=== PATIENT | female | born 1940 | race Caucasian/White ===

== ENCOUNTER → 2019-03-24 | Outpatient (CLI) | payer MEDICARE, OTHER ==
[2019-03-24 16:45] LABS: BASOPHILS # (AUTO) 0.1 10^3/uL (0.0-0.1); BASOPHILS % (AUTO) 1 % (0-10); EOSINOPHILS # (AUTO) 0.1 10^3/uL (0.0-0.3); EOSINOPHILS % (AUTO) 1 % (0-10); HEMATOCRIT 40 % (35-52); HEMOGLOBIN 13.2 G/DL (11.5-16.0); LYMPHOCYTES # (AUTO) 1.8 X 10^3 (1.0-4.0); LYMPHOCYTES % (AUTO) 29 % (12-44); MEAN CORPUSCULAR HEMOGLOBIN 28 PG (25-34); MEAN CORPUSCULAR HGB CONC 33 G/DL (32-36); MEAN CORPUSCULAR VOLUME 86 FL (80-99); MEAN PLATELET VOLUME 8.9 FL (7.4-10.4); MONOCYTES # (AUTO) 0.6 X 10^3 (0.0-1.0); MONOCYTES % (AUTO) 9 % (0-12); NEUTROPHILS # (AUTO) 3.8 X 10^3 (1.8-7.8); NEUTROPHILS % (AUTO) 60 % (42-75); PLATELET COUNT 309 10^3/uL (130-400); WHITE BLOOD COUNT 6.4 10^3/uL (4.3-11.0)
--- NOTE | 2019-03-24 16:55 | Diagnostic Imaging Report ---
INDICATION: Heart murmur. COMPARISON: None available. TECHNIQUE: Frontal and lateral radiograph of the chest dated March 24, 2019. FINDINGS: The cardiac silhouette is within normal limits in size. No significant pulmonary vascular congestion. The lungs are clear of focal pulmonary opacity. No pleural effusion. No pneumothorax. Mild S-shaped curvature of the thoracolumbar spine with mild scattered osseous degenerative changes. No acute osseous abnormality. IMPRESSION: No acute cardiopulmonary abnormality. Dictated by: Dictated on workstation # [id number]
[2019-03-24 17:10] LABS: ALANINE AMINOTRANSFERASE 18 U/L (0-55); ALBUMIN 4.3 GM/DL (3.2-4.5); ALKALINE PHOSPHATASE 67 U/L (40-136); BILIRUBIN,TOTAL 0.5 MG/DL (0.1-1.0); BUN/CREATININE RATIO 20; CALCIUM 9.5 MG/DL (8.5-10.1); CARBON DIOXIDE 24 MMOL/L (21-32); CHLORIDE 107 MMOL/L (98-107); CREATININE SERUM 0.92 MG/DL (0.60-1.30); GFR ESTIMATED 59; GLUCOSE 95 MG/DL (70-105); POTASSIUM 4.2 MMOL/L (3.6-5.0); SODIUM 141 MMOL/L (135-145); TOTAL PROTEIN 7.3 GM/DL (6.4-8.2)
[2019-03-24 17:12] LABS: ERYTHROCYTE SEDIMENTATION RATE 12 MM/HR (0-30)
[2019-03-24 17:30] LABS: FREE T4 (FREE THYROXINE) 1.01 NG/DL (0.70-1.48)
== END ==
LOC: CARD 16:24
PROVIDERS: ATTEND Family Medicine
DX: R06.00 Dyspnea, unspecified (principal); R53.83 Other fatigue; R05 Cough; R01.1 Cardiac murmur, unspecified
CPT/HCPCS: 36415; 71046; 80053; 84439; 84443; 84484; 85025; 85652; 93005

== ENCOUNTER → 2020-03-11 | Outpatient (CLI) | payer MEDICARE, OTHER ==
--- NOTE | 2020-03-11 14:59 | Diagnostic Imaging Report ---
EXAMINATION: CT head without contrast. TECHNIQUE: Multiple contiguous axial images were obtained through the brain without the use of intravenous contrast. All CT scans use one or more of the following dose optimizing techniques: automated exposure control, MA and/or KvP adjustment based on a patient size and exam type, or iterative reconstruction. HISTORY: Hypertension. Vision changes. Headache. COMPARISON: None available. FINDINGS: No large acute territorial ischemia, mass, or hemorrhage. No midline shift or mass effect. Small amount of scattered hypoattenuation is seen in the periventricular and subcortical white matter. The ventricles, cortical sulci, and basilar cisterns are patent and unremarkable. The orbits are normal. Paranasal sinuses are normal. Mastoid air cells are clear. No soft tissue abnormality is seen. No osseous lesions or fractures are seen. IMPRESSION: 1. No large acute territorial ischemia, mass, or hemorrhage. 2. Scattered areas of hypoattenuation in the periventricular and subcortical white matter, favored to represent chronic microvascular disease. Dictated by: Dictated on workstation # [id number]
== END ==
LOC: RAD 14:34
PROVIDERS: ATTEND Family Medicine
DX: I10 Essential (primary) hypertension (principal); H53.9 Unspecified visual disturbance; G93.89 Other specified disorders of brain
CPT/HCPCS: 70450

== ENCOUNTER → 2020-03-22 | Outpatient (CLI) | payer MEDICARE, OTHER ==
--- NOTE | 2020-03-22 12:55 | Diagnostic Imaging Report ---
PROCEDURE: US carotid duplex, bilateral. TECHNIQUE: Multiple real-time grayscale images were obtained over the carotid arteries in various projections, bilaterally. Additional spectral analysis and color Doppler duplex images were also obtained. INDICATION: Carotid bruit. FINDINGS: Mild plaquing is identified bilaterally. There is very mild velocity elevation in the right internal carotid artery reaching 137 cm/s. Velocities on the left carotid system are unremarkable. Both vertebral arteries show antegrade flow. IMPRESSION: Mild bilateral carotid plaque. Velocity measurements in the right internal carotid artery are consistent with approximately 50% diameter stenosis. No other significant abnormality is seen. Parameters based on the consensus panel Mckeon-Scale and Doppler ultrasound criteria published April 2003, Radiology, Volume 229. DOPPLER (peak systolic velocity M/S Right Left CCA 1.0 1.3 ICA Proximal 1.37 1.06 ICA Mid 1.32 1.0 ICA Distal 0.81 0.96 RATIO 1.38 0.82 ECA 1.19 1.33 VERT 0.70 0.65 Dictated by: Dictated on workstation # [id number]
== END ==
LOC: RAD 12:30
PROVIDERS: ATTEND Family Medicine
DX: I65.23 Occlusion and stenosis of bilateral carotid arteries (principal); R09.89 Other specified symptoms and signs involving the circulatory and respiratory systems
CPT/HCPCS: 93880

== ENCOUNTER → 2020-03-27 | Outpatient (CLI) | payer MEDICARE, OTHER | LOC: LAB 11:14 | PROVIDERS: ATTEND Internal Medicine | DX: M31.6 Other giant cell arteritis (principal) | CPT/HCPCS: 36415; 85652; 86141 ==

== ENCOUNTER 2020-04-08 12:00 | Emergency (ER) | payer MEDICARE, OTHER ==
[~2020-04-08] VITALS: Ht 160 cm; Wt 56.7 kg
--- NOTE | 2020-04-08 12:17 | ED General ---
General Stated Complaint: [place],HTN, BLURRED VISION, WEAKNESS Source of Information: Patient Exam Limitations: No Limitations History of Present Illness Date Seen by Provider: Apr 08, 2020 Time Seen by Provider: 12:14 Initial Comments To ER by private vehicle with reports of a brief episode of headache and general malaise and high blood pressure. She awakened this morning feeling fine, went to a , had a brief episode of headache, blurred vision and high blood pressure as well as global weakness. She states that she feels back to normal now as if she could go home and eat something. 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 Timing/Duration: 1/2 Hour Severity: Moderate Associated Systoms: Headaches Allergies and Home Medications Allergies Coded Allergies: acetaminophen (Unverified Allergy, Unknown, 09/08/14) Home Medications No Active Prescriptions or Reported Meds Patient Home Medication List Home Medication List Reviewed: Yes Review of Systems Review of Systems Constitutional: see HPI EENTM: see HPI Respiratory: no symptoms reported Cardiovascular: no symptoms reported Genitourinary: no symptoms reported Musculoskeletal: no symptoms reported Skin: no symptoms reported Psychiatric/Neurological: No Symptoms Reported Hematologic/Lymphatic: No Symptoms Reported Past Irbtkdq-Swxwaj-Rbqdlj Hx Patient Social History Recent Foreign Travel: No Contact w/Someone Who Travel: No Physical Exam Vital Signs Vital Signs - First Documented 04/08/20 12:35 Temp 35.7 Pulse 70 Resp 20 B/P (MAP) 199/104 (135) Pulse Ox 96 O2 Delivery Room Air Capillary Refill : Height, Weight, BMI Height: 5'4.00" Weight: 144lbs. oz. 65.666597bi; BMI Method: General Appearance: No Apparent Distress, WD/WN, Other (alert and oriented, walks to room 6 without antalgic gat. Recalls all events of today and describes them in great detail. She does appear quite anxious. She is hypertensive at 1 99/104 with a heart rate normal sinus rhythm 73 without ectopy.) Eyes: Bilateral Eye Normal Inspection, Bilateral Eye PERRL Respiratory: Normal Breath Sounds, No Accessory Muscle Use, No Respiratory Distress Gastrointestinal: Normal Bowel Sounds, Non Tender, Soft Neurologic/Psychiatric: Alert, Oriented x3, Other (she moves all extremities without motor or sensory deficit.) Skin: Normal Color, Warm/Dry Progress/Results/Core Measures Suspected Sepsis SIRS Temperature: Pulse: Respiratory Rate: Laboratory Tests 04/08/20 12:22: White Blood Count 15.6H Blood Pressure / Mean: Laboratory Tests 04/08/20 12:22: Creatinine 0.86, Platelet Count 525H, Total Bilirubin 0.8 Results/Orders Lab Results Laboratory Tests Test 04/08/20 12:22 Range/Units White Blood Count 15.6 H 4.3-11.0 10^3/uL Red Blood Count 4.78 3.80-5.11 10^6/uL Hemoglobin 12.4 11.5-16.0 g/dL Hematocrit 40 35-52 % Mean Corpuscular Volume 84 80-99 fL Mean Corpuscular Hemoglobin 26 25-34 pg Mean Corpuscular Hemoglobin Concent 31 L 32-36 g/dL Red Cell Distribution Width 15.7 H 10.0-14.5 % Platelet Count 525 H 130-400 10^3/uL Mean Platelet Volume 8.5 L 9.0-12.2 fL Immature Granulocyte % (Auto) 1 % Neutrophils (%) (Auto) 70 42-75 % Lymphocytes (%) (Auto) 21 12-44 % Monocytes (%) (Auto) 7 0-12 % Eosinophils (%) (Auto) 0 0-10 % Basophils (%) (Auto) 0 0-10 % Neutrophils # (Auto) 11.0 H 1.8-7.8 10^3/uL Lymphocytes # (Auto) 3.3 1.0-4.0 10^3/uL Monocytes # (Auto) 1.1 H 0.0-1.0 10^3/uL Eosinophils # (Auto) 0.1 0.0-0.3 10^3/uL Basophils # (Auto) 0.0 0.0-0.1 10^3/uL Immature Granulocyte # (Auto) 0.1 0.0-0.1 10^3/uL Neutrophils % (Manual) 67 % Lymphocytes % (Manual) 25 % Monocytes % (Manual) 8 % Hypochromasia SLIGHT Anisocytosis SLIGHT Erythrocyte Sedimentation Rate 15 0-30 MM/HR Urine Color YELLOW Urine Clarity CLOUDY Urine pH 7.5 5-9 Urine Specific [place] 1.020 1.016-1.022 Urine Protein 1+ H NEGATIVE Urine Glucose (UA) NEGATIVE NEGATIVE Urine Ketones NEGATIVE NEGATIVE Urine Nitrite NEGATIVE NEGATIVE Urine Bilirubin NEGATIVE NEGATIVE Urine Urobilinogen 0.2 < = 1.0 MG/DL Urine Leukocyte Esterase 1+ H NEGATIVE Urine RBC (Auto) NEGATIVE NEGATIVE Urine RBC RARE /HPF Urine WBC RARE /HPF Urine Crystals PRESENT H /LPF Urine Amorphous Sediment LARGE KARINE PHOSPHATE H /LPF Urine Bacteria NEGATIVE /HPF Urine Casts NONE /LPF Urine Mucus NEGATIVE /LPF Urine Culture Indicated NO Sodium Level 133 L 135-145 MMOL/L Potassium Level 3.8 3.6-5.0 MMOL/L Chloride Level 96 L 98-107 MMOL/L Carbon Dioxide Level 24 21-32 MMOL/L Anion Gap 13 5-14 MMOL/L Blood Urea Nitrogen 15 7-18 MG/DL Creatinine 0.86 0.60-1.30 MG/DL Estimat Glomerular Filtration Rate > 60 BUN/Creatinine Ratio 17 Glucose Level 116 H 70-105 MG/DL Calcium Level 9.2 8.5-10.1 MG/DL Corrected Calcium 9.1 8.5-10.1 MG/DL Total Bilirubin 0.8 0.1-1.0 MG/DL Aspartate Amino Transf (AST/SGOT) 16 5-34 U/L Alanine Aminotransferase (ALT/SGPT) 20 0-55 U/L Alkaline Phosphatase 66 40-136 U/L Troponin I < 0.028 <0.028 NG/ML Total Protein 7.2 6.4-8.2 GM/DL Albumin 4.1 3.2-4.5 GM/DL My Orders Orders - DA TOVAR APRN Ct Head Wo (04/08/20 12:11) Cbc With Automated Diff (04/08/20 12:11) Comprehensive Metabolic Panel (04/08/20 12:11) Erythrocyte Sedimentation Rate (04/08/20 12:11) Ekg Tracing (04/08/20 12:11) Troponin I (04/08/20 12:11) Ed Iv/Invasive Line Start (04/08/20 12:11) Ua Culture If Indicated (04/08/20 12:11) Manual Differential (04/08/20 12:22) Clonidine Tablet (Catapres Tablet) (04/08/20 13:15) Vital Signs/I&O 04/08/20 12:35 Temp 35.7 Pulse 70 Resp 20 B/P (MAP) 199/104 (135) Pulse Ox 96 O2 Delivery Room Air Capillary Refill : Departure Communication (Admissions) 1343-blood pressure has reduced down to 157/81 despite no treatment. She has calm down as well, feel that anxiety is at least a part of her symptoms. We'll have her follow-up with primary care for further blood pressure management. Impression Primary Impression: Hypertension Additional Impression: transient global weakness Disposition: HOME, SELF-CARE Condition: Stable Departure-Patient Inst. Decision time for Depature: 13:44 Referrals: AGUSTINA HAMM DO (PCP/Family) Primary Care Physician Patient Instructions: Medicines for High Blood Pressure Add. Discharge Instructions: 1. Follow-up with Dr. HAMM this week for recheck. Return to ER for any worsening or recurrent symptoms. Scripts No Active Prescriptions or Reported Meds Copy Copies To 1: AGUSTINA HAMM PETER J APRN Apr 08, 2020 12:17
[2020-04-08 12:33] LABS: BASOPHILS % (AUTO) 0 % (0-10); EOSINOPHILS # (AUTO) 0.1 10^3/uL (0.0-0.3); EOSINOPHILS % (AUTO) 0 % (0-10); HEMATOCRIT 40 % (35-52); HEMOGLOBIN 12.4 g/dL (11.5-16.0); LYMPHOCYTES # (AUTO) 3.3 10^3/uL (1.0-4.0); LYMPHOCYTES % (AUTO) 21 % (12-44); MEAN CORPUSCULAR HEMOGLOBIN 26 pg (25-34); MEAN CORPUSCULAR HGB CONC 31 g/dL (32-36); MEAN CORPUSCULAR VOLUME 84 fL (80-99); MEAN PLATELET VOLUME 8.5 fL (9.0-12.2); MONOCYTES # (AUTO) 1.1 10^3/uL (0.0-1.0); MONOCYTES % (AUTO) 7 % (0-12); NEUTROPHILS % (AUTO) 70 % (42-75); PLATELET COUNT 525 10^3/uL (130-400); WHITE BLOOD COUNT 15.6 10^3/uL (4.3-11.0)
[2020-04-08 12:34] LABS: BILIRUBIN,URINE NEGATIVE (NEGATIVE); CLARITY,URINE CLOUDY; COLOR,URINE YELLOW; GLUCOSE, URINE (UA) NEGATIVE (NEGATIVE); KETONES,URINE NEGATIVE (NEGATIVE); LEUKOCYTE ESTERASE ,URINE 1+ (NEGATIVE); NITRITE,URINE NEGATIVE (NEGATIVE); PH,URINE 7.5 (5-9); PROTEIN,URINE 1+ (NEGATIVE)
[2020-04-08 12:45] LABS: ALBUMIN 4.1 GM/DL (3.2-4.5); CHLORIDE 96 MMOL/L (98-107); POTASSIUM 3.8 MMOL/L (3.6-5.0); SODIUM 133 MMOL/L (135-145)
[2020-04-08 12:46] LABS: CALCIUM 9.2 MG/DL (8.5-10.1)
[2020-04-08 12:47] LABS: GLUCOSE 116 MG/DL (70-105); TOTAL PROTEIN 7.2 GM/DL (6.4-8.2)
[2020-04-08 12:49] LABS: BILIRUBIN,TOTAL 0.8 MG/DL (0.1-1.0); CARBON DIOXIDE 24 MMOL/L (21-32)
[2020-04-08 12:50] LABS: AMORPHOUS SEDIMENT,UR LARGE AMOR PHOSPHATE /LPF; BACTERIA,URINE NEGATIVE /HPF; RBC,URINE RARE /HPF; WBC,URINE RARE /HPF
[2020-04-08 12:51] LABS: ALKALINE PHOSPHATASE 66 U/L (40-136); CREATININE SERUM 0.86 MG/DL (0.60-1.30); GFR ESTIMATED > 60
[2020-04-08 12:52] LABS: BUN/CREATININE RATIO 17
[2020-04-08 12:54] LABS: ALANINE AMINOTRANSFERASE 20 U/L (0-55)
[2020-04-08 12:55] LABS: ANISOCYTOSIS SLIGHT; HYPOCHROMASIA SLIGHT; LYMPHOCYTES % (MANUAL) 25 %; MONOCYTES % (MANUAL) 8 %; NEUTROPHILS % (MANUAL) 67 %
[2020-04-08 12:56] LABS: ERYTHROCYTE SEDIMENTATION RATE 15 MM/HR (0-30)
[2020-04-08] MEDS ORDERED: cloNIDine 0.1 MG (CATAPRES) TAB PO ONE (13:15)
--- NOTE | 2020-04-08 13:46 | Diagnostic Imaging Report ---
PROCEDURE: CT head without contrast. TECHNIQUE: Multiple contiguous axial images were obtained through the brain without the use of intravenous contrast. Auto Exposure Controls were utilized during the CT exam to meet ALARA standards for radiation dose reduction. INDICATION: Dizziness There is no mass, shift of the midline or hemorrhage to suggest an acute intracranial abnormality. The ventricles are not abnormally dilated and stable in size when compared to the prior exam of 03/11/2020. The bone windows show no evidence for fracture or for destructive lesion. The orbits are symmetrical and within normal limits. The sinuses, where visualized, are clear. IMPRESSION: 1. There is no evidence for an acute intracranial abnormality. When compared to prior study there has been no significant change. 2. If clinical concern regarding an underlying abnormality persists, then MRI would be recommended for further study. 3. These results were discussed with Myles Terry APRN. Dictated by: Dictated on workstation # [id number]
[2020-04-08 13:54] VITALS: BP 162/59
== END 2020-04-08 13:54 | disposition home or self-care (01) ==
LOC: EDUNIT# 12:00 → ER 12:02
DX: I10 Essential (primary) hypertension (principal); R53.1 Weakness; F41.9 Anxiety disorder, unspecified; Z88.6 Allergy status to analgesic agent
CPT/HCPCS: 36415; 70450; 80053; 81000; 84484; 85007; 85027; 85652; 93005

== ENCOUNTER → 2020-04-14 | Outpatient (CLI) | payer MEDICARE ==
--- NOTE | 2020-04-14 10:30 | Diagnostic Imaging Report ---
PROCEDURE: MR imaging of the brain without contrast. TECHNIQUE: Multiplanar, multisequence MR imaging of the brain was performed without contrast. INDICATION: Headaches and weakness. No prior studies are available for comparison. FINDINGS: Ventricles and sulci are appropriate for the patient's age. There are occasional periventricular and subcortical white matter signal foci, likely on the basis of chronic microvascular ischemia. No diffusion restriction is identified to suggest acute ischemia. The normal expected flow-voids within the carotid siphons are noted. No acute intra-axial or extra-axial hemorrhage is detected. Corpus callosum is unremarkable. Sella and parasellar structures are unremarkable. IMPRESSION: Changes of chronic microvascular ischemia. No acute intracranial process is detected. Dictated by: Dictated on workstation # [id number]
== END ==
LOC: RAD 09:30
PROVIDERS: ATTEND Family Medicine
DX: R51.9 Headache, unspecified (principal); H53.9 Unspecified visual disturbance; R53.1 Weakness
CPT/HCPCS: 70551

== ENCOUNTER 2020-04-30 11:41 | Emergency (ER) | payer MEDICARE, OTHER ==
[~2020-04-30] VITALS: Ht 160 cm; Wt 56.8 kg
[2020-04-30] MEDS ORDERED: ASPIRIN 81 MG CHEW (CHILDREN'S ASA) PO ONE (12:00)
[2020-04-30 12:08] LABS: BASOPHILS # (AUTO) 0.1 10^3/uL (0.0-0.1); BASOPHILS % (AUTO) 1 % (0-10); EOSINOPHILS # (AUTO) 0.1 10^3/uL (0.0-0.3); EOSINOPHILS % (AUTO) 1 % (0-10); HEMATOCRIT 41 % (35-52); HEMOGLOBIN 12.7 g/dL (11.5-16.0); LYMPHOCYTES # (AUTO) 1.7 10^3/uL (1.0-4.0); LYMPHOCYTES % (AUTO) 16 % (12-44); MEAN CORPUSCULAR HEMOGLOBIN 27 pg (25-34); MEAN CORPUSCULAR HGB CONC 31 g/dL (32-36); MEAN CORPUSCULAR VOLUME 85 fL (80-99); MEAN PLATELET VOLUME 8.9 fL (9.0-12.2); MONOCYTES # (AUTO) 0.8 10^3/uL (0.0-1.0); MONOCYTES % (AUTO) 7 % (0-12); NEUTROPHILS # (AUTO) 8.3 10^3/uL (1.8-7.8); NEUTROPHILS % (AUTO) 75 % (42-75); PLATELET COUNT 391 10^3/uL (130-400)
--- NOTE | 2020-04-30 12:09 | NUR ---
UPDATE TO DAUGHTER SANJANA
--- NOTE | 2020-04-30 12:18 | ED Cardiac General ---
History of Present Illness General Chief Complaint: Chest Pain Stated Complaint: CP,BACK PAIN, Nursing Triage Note: AMB TO ROOM C/O CHEST PAIN AT HOME AROUND 10A STATES WAS TALKING WITH FRIEND AND THEY WAS DUSCUSSING COVID. WHEN ONSET OF PAIN ACROSS CHEST. ON PAIN ON ADMIT TO ROOM Source: patient Exam Limitations: no limitations History of Present Illness Date Seen by Provider: Apr 30, 2020 Time Seen by Provider: 12:16 Initial Comments To ER by private vehicle with reports of chest pain that was brief in duration and was across the left side of her chest into her back. She was also slightly short of breath. She was talking to her friend about Covid on the phone when she had this chest pain. It lasted about 15 minutes before completely resolving. She admits she was very anxious and upset in talking about Covid. Severity: moderate Activities at Onset: none NTG SL NUCLEAR POWERPLANT SUPERVISOR: No ASA po NUCLEAR POWERPLANT SUPERVISOR: No Allergies and Home Medications Allergies Coded Allergies: acetaminophen (Unverified Allergy, Unknown, 09/08/14) Home Medications Alprazolam 0.25 Mg Tablet, 0.25 MG PO BID PRN for ANXIETY Prescribed by: DA TOVAR on 04/30/20 1307 Patient Home Medication List Home Medication List Reviewed: Yes Review of Systems Review of Systems Constitutional: see HPI EENTM: No Symptoms Reported Respiratory: No Symptoms Reported Cardiovascular: See HPI, Chest Pain Gastrointestinal: See HPI Genitourinary: No Symptoms Reported Musculoskeletal: no symptoms reported Skin: no symptoms reported Psychiatric/Neurological: No Symptoms Reported Endocrine: No Symptoms Reported Hematologic/Lymphatic: No Symptoms Reported Past Wghnews-Amxkfk-Teadoh Hx Patient Social History Alcohol Use: Denies Use Recreational Drug Use: No Smoking Status: Never a Smoker Recent Foreign Travel: No Contact w/Someone Who Travel: No Recent Infectious Disease Expo: No Immunizations Up To Date Tetanus Booster (TDap): Unknown Past Medical History Surgeries: Yes Respiratory: No Cardiac: No Neurological: No Gastrointestinal: No Musculoskeletal: No Endocrine: No Physical Exam Vital Signs Vital Signs - First Documented 04/30/20 11:41 Temp 36.5 Pulse 89 Resp 18 B/P (MAP) 159/82 (107) Pulse Ox 99 O2 Delivery Room Air Capillary Refill : Less Than 3 Seconds Height, Weight, BMI Height: 5'4.00" Weight: 144lbs. oz. 65.922561se; 22.00 BMI Method: General Appearance: No Apparent Distress, WD/WN, Anxious (Very anxious, speaks in a high rate of speed. Denies any complaints of pain or shortness of breath at this time.) Neck: Full Range of Motion, Normal Inspection Respiratory: Lungs Clear, Normal Breath Sounds, No Accessory Muscle Use, No Respiratory Distress Cardiovascular: Regular Rate, Rhythm, Normal Peripheral Pulses Gastrointestinal: Normal Bowel Sounds, Non Tender, Soft Extremity: Normal Capillary Refill, Normal Inspection Neurologic/Psychiatric: Alert, Oriented x3 Skin: Normal Color, Warm/Dry Progress/Results/Core Measures Results/Orders Lab Results Laboratory Tests Test 04/30/20 11:49 04/30/20 14:05 Range/Units White Blood Count 11.0 4.3-11.0 10^3/uL Red Blood Count 4.79 3.80-5.11 10^6/uL Hemoglobin 12.7 11.5-16.0 g/dL Hematocrit 41 35-52 % Mean Corpuscular Volume 85 80-99 fL Mean Corpuscular Hemoglobin 27 25-34 pg Mean Corpuscular Hemoglobin Concent 31 L 32-36 g/dL Red Cell Distribution Width 18.2 H 10.0-14.5 % Platelet Count 391 130-400 10^3/uL Mean Platelet Volume 8.9 L 9.0-12.2 fL Immature Granulocyte % (Auto) 1 % Neutrophils (%) (Auto) 75 42-75 % Lymphocytes (%) (Auto) 16 12-44 % Monocytes (%) (Auto) 7 0-12 % Eosinophils (%) (Auto) 1 0-10 % Basophils (%) (Auto) 1 0-10 % Neutrophils # (Auto) 8.3 H 1.8-7.8 10^3/uL Lymphocytes # (Auto) 1.7 1.0-4.0 10^3/uL Monocytes # (Auto) 0.8 0.0-1.0 10^3/uL Eosinophils # (Auto) 0.1 0.0-0.3 10^3/uL Basophils # (Auto) 0.1 0.0-0.1 10^3/uL Immature Granulocyte # (Auto) 0.1 0.0-0.1 10^3/uL Prothrombin Time 13.3 12.2-14.7 SEC INR Comment 1.0 0.8-1.4 Activated Partial Thromboplast Time 28 24-35 SEC Sodium Level 135 135-145 MMOL/L Potassium Level 4.2 3.6-5.0 MMOL/L Chloride Level 98 98-107 MMOL/L Carbon Dioxide Level 25 21-32 MMOL/L Anion Gap 12 5-14 MMOL/L Blood Urea Nitrogen 16 7-18 MG/DL Creatinine 0.80 0.60-1.30 MG/DL Estimat Glomerular Filtration Rate > 60 BUN/Creatinine Ratio 20 Glucose Level 86 70-105 MG/DL Calcium Level 8.7 8.5-10.1 MG/DL Corrected Calcium 8.7 8.5-10.1 MG/DL Magnesium Level 2.2 1.6-2.4 MG/DL Total Bilirubin 0.6 0.1-1.0 MG/DL Aspartate Amino Transf (AST/SGOT) 20 5-34 U/L Alanine Aminotransferase (ALT/SGPT) 20 0-55 U/L Alkaline Phosphatase 61 40-136 U/L Myoglobin 33.1 10.0-92.0 NG/ML Troponin I < 0.028 < 0.028 <0.028 NG/ML B-Type Natriuretic Peptide 69.0 <100.0 PG/ML Total Protein 7.0 6.4-8.2 GM/DL Albumin 4.0 3.2-4.5 GM/DL Lipase 52 8-78 U/L My Orders Orders - DA TOVAR APRN Cbc With Automated Diff (04/30/20 11:57) Magnesium (04/30/20 11:57) Chest 1 View, Ap/Pa Only (04/30/20 11:57) Ekg Tracing (04/30/20 11:57) Comprehensive Metabolic Panel (04/30/20 11:57) Myoglobin Serum (04/30/20 11:57) Protime With Inr (04/30/20 11:57) Partial Thromboplastin Time (04/30/20 11:57) O2 (04/30/20 11:57) Monitor-Rhythm Ecg Trace Only (04/30/20 11:57) Ed Iv/Invasive Line Start (04/30/20 11:57) Lipase (04/30/20 11:57) BNP (04/30/20 11:57) Troponin I (04/30/20 11:57) Aspirin Chewable Tablet (Baby Aspirin Ch (04/30/20 12:00) Troponin I (04/30/20 13:35) Medications Given in ED Current Medications Medications Dose Ordered Sig/Mirella Route Start Time Stop Time Status Last Admin Dose Admin Aspirin 324 mg ONCE ONCE PO 04/30/20 12:00 04/30/20 12:01 DC 04/30/20 12:06 324 MG Vital Signs/I&O 04/30/20 04/30/20 04/30/20 04/30/20 11:41 11:55 12:36 14:07 Temp 36.5 Pulse 89 75 72 Resp 18 B/P (MAP) 159/82 (107) 119/71 100/64 Pulse Ox 99 99 97 O2 Delivery Room Air Room Air Room Air Room Air 04/30/20 14:53 Pulse 77 Resp 18 B/P (MAP) 121/52 Pulse Ox 99 O2 Delivery Room Air Blood Pressure Mean: 107 Departure Impression Primary Impression: Chest pain Additional Impression: Anxiety Disposition: 01 HOME, SELF-CARE Condition: Improved Departure-Patient Inst. Decision time for Depature: 13:05 Referrals: ANTONY ALFARO MD FACP FACC [facility]S RAYMUNDO MCCARTY MD, JACQUELINE S DO (PCP/Family) Primary Care Physician Patient Instructions: Anxiety, Adult (DC), Chest Pain (DC) Add. Discharge Instructions: 1. Return to ER for any concerning symptoms. If you begin to feel anxious to use the anxiety medication that I have prescribed. Be aware it can make you little sleepy. All discharge instructions reviewed with patient and/or family. Voiced understanding. Scripts Alprazolam (Xanax) 0.25 Mg Tablet 0.25 MG PO BID PRN for ANXIETY, #10 TAB Prov: DA TOVAR [facility] 04/30/20 Copy Copies To 1: AGUSTINA HAMM PETER J [facility] Apr 30, 2020 12:18
[2020-04-30 12:20] LABS: CHLORIDE 98 MMOL/L (98-107); POTASSIUM 4.2 MMOL/L (3.6-5.0); PROTHROMBIN TIME PATIENT 13.3 SEC (12.2-14.7); SODIUM 135 MMOL/L (135-145)
[2020-04-30 12:21] LABS: CALCIUM 8.7 MG/DL (8.5-10.1)
[2020-04-30 12:22] LABS: GLUCOSE 86 MG/DL (70-105)
[2020-04-30 12:23] LABS: CARBON DIOXIDE 25 MMOL/L (21-32)
[2020-04-30 12:24] LABS: BILIRUBIN,TOTAL 0.6 MG/DL (0.1-1.0)
[2020-04-30 12:26] LABS: ALKALINE PHOSPHATASE 61 U/L (40-136); GFR ESTIMATED > 60
[2020-04-30 12:27] LABS: BUN/CREATININE RATIO 20
[2020-04-30 12:28] LABS: MAGNESIUM 2.2 MG/DL (1.6-2.4)
[2020-04-30 12:29] LABS: ALANINE AMINOTRANSFERASE 20 U/L (0-55)
[2020-04-30 12:30] LABS: LIPASE 52 U/L (8-78)
--- NOTE | 2020-04-30 12:40 | Diagnostic Imaging Report ---
INDICATION: Chest pain. TIME OF EXAM: 12:23 p.m. COMPARISON: Correlation is made with prior chest from 03/24/2019. The heart size is normal. The pulmonary vascularity is unremarkable. The lungs are clear. No infiltrate, effusion or pneumothorax is detected. IMPRESSION: No acute cardiopulmonary process is detected. Dictated by: Dictated on workstation # [id number]
[2020-04-30] MEDS ORDERED: ALPR0.25 PO (13:07)
--- NOTE | 2020-04-30 13:49 | NUR ---
UPDATE TO GIVEN TO UNRULY ALLAN
--- NOTE | 2020-04-30 14:05 | NUR ---
2ND TROPONIN DRAWN
[2020-04-30 14:53] VITALS: BP 121/52
== END 2020-04-30 15:00 | disposition home or self-care (01) ==
LOC: EDUNIT# 11:41 → ER 11:43
DX: R07.9 Chest pain, unspecified (principal); F41.9 Anxiety disorder, unspecified; Z88.6 Allergy status to analgesic agent
CPT/HCPCS: 36415; 71045; 80053; 83690; 83735; 83874; 83880; 84484; 85025; 85610; 85730; 93005; 93041

== ENCOUNTER → 2020-06-18 | Outpatient (CLI) | payer MEDICARE, OTHER ==
[~2020-06-18] VITALS: Ht 160 cm; Wt 54.0 kg
[~2020-06-18] MED LIST: ALPR0.25 PO; BAMLANIVIMAB 700 MG in NS 200 ML IV ONE; EPINEPHrine INJECTION 1 MG/ML AMP IM PRN; diphenhydrAMINE 50 MG/ML INJ (BENADRYL) IV PRN
[2020-06-18 08:29] VITALS: BP 128/55
[2020-06-18 09:38] VITALS: BP 115/60
== END ==
LOC: INFUSION 07:58
PROVIDERS: ATTEND Family Medicine
DX: U07.1 COVID-19 (principal)

== ENCOUNTER → 2021-02-18 | Outpatient (CLI) | payer MEDICARE, OTHER ==
[~2021-02-18] MED LIST changes: -BAMLANIVIMAB 700 MG in NS 200 ML IV ONE; -EPINEPHrine INJECTION 1 MG/ML AMP IM PRN; -diphenhydrAMINE 50 MG/ML INJ (BENADRYL) IV PRN
--- NOTE | 2021-02-18 15:07 | Diagnostic Imaging Report ---
PROCEDURE: Pelvic comp/transvaginal sonogram. TECHNIQUE: Complete transabdominal and transvaginal pelvic ultrasound was performed. In addition, limited pelvic Doppler was performed. INDICATION: Vaginal bleeding. Uterus is anteverted measuring 5.0 x 2.2 x 2.2 cm. Endometrium is thin measuring 2 mm. No myometrial mass is identified. The ovaries were not visualized. There are some dilated vessels in the left adnexa. No other abnormality is seen. IMPRESSION: 1. Normal thickness to the endometrium at 2 mm. 2. Nonvisualized ovaries. No adnexal mass or free fluid is seen. There are some prominent vessels in the left adnexa which can be seen with pelvic congestion. Dictated by: Dictated on workstation # [id number]
== END ==
LOC: RAD 12:30
PROVIDERS: ATTEND Family Medicine
DX: R31.9 Hematuria, unspecified (principal)
CPT/HCPCS: 76830; 76856

== ENCOUNTER → 2021-05-26 | Outpatient (CLI) | payer MEDICARE, OTHER | LOC: LABNPT 17:15 | PROVIDERS: ATTEND Family Medicine | DX: U07.1 COVID-19 (principal) | CPT/HCPCS: 87636 ==

== ENCOUNTER 2021-05-31 09:10 | Outpatient (CLI) | payer MEDICARE, OTHER ==
[~2021-05-31] VITALS: Ht 160 cm; Wt 57.2 kg
[2021-05-31 09:17] VITALS: BP 179/74
[2021-05-31] MEDS ORDERED: diphenhydrAMINE 50 MG/ML INJ (BENADRYL) IV PRN (09:45)
[2021-05-31] MEDS ORDERED: BAMLANIVIMAB 700 MG/ETESEVIMAB 1,400 MG IN NS IV ONE ×3 (09:45)
[2021-05-31] MEDS ORDERED: ACETAMINOPHEN 500 MG TAB (TYLENOL) PO PRN (09:45)
[2021-05-31] MEDS ORDERED: EPINEPHrine INJECTION 1 MG/ML AMP IM PRN (09:45)
[2021-05-31] MEDS ORDERED: ONDANSETRON 4 MG/2 ML (SDV) Z0FRAN IV PRN (09:45)
[2021-05-31 10:14] VITALS: BP 180/69
== END 2021-05-31 11:03 | disposition home or self-care (01) ==
LOC: INFUSION 09:10
PROVIDERS: ATTEND Family Medicine
DX: U07.1 COVID-19 (principal)

== ENCOUNTER → 2021-08-30 | Outpatient (CLI) | payer MEDICARE, OTHER ==
--- NOTE | 2021-08-30 19:08 | Diagnostic Imaging Report ---
INDICATION: 81-year-old female, postmenopausal. Screening for osteoporosis. COMPARISON: None. FINDINGS: AP Spine L1-L4: [BMD (g/cm2): 0.963] [T-Score: -2.0] [Z-Score: 0.1] [BMD Previous: NA] [BMD % Change: NA] LT Hip Neck: [BMD (g/cm2): 0.708] [T-Score: -2.4] [Z-Score: 0.0] LT Hip Total: [BMD (g/cm2):0.725] [T-Score:-2.2] [Z-Score: 0.0] [BMD Previous: NA] [BMD % Change: NA] RT Hip Neck: [BMD (g/cm2):0.816] [T-Score:-1.6] [Z-Score:0.8] RT Hip Total: [BMD (g/cm2):0.775] [T-score:-1.8] [Z-Score:0.4] [BMD Previous:NA] [BMD % Change:NA] *Indicates significant change from prior examination based on 95% confidence level. World Health Organization criteria for BMD interpretation classify patients as Normal (T-score at or above -1.0), Osteopenic (T-score between -1.0 and -2.5) or Osteoporotic (T-score at or below -2.5). LIMITATIONS AND MODIFICATION: None. FRACTURE RISK (FRAX SCORE): The ten year probability of (%): Major Osteoporotic Fracture: [17.2] Hip Fracture: [6.1] IMPRESSION: 1. Osteopenia (Low bone mass). 2. Baseline examination. 3. See below National Osteoporosis Foundation guidelines on when to potentially initiate pharmacologic therapy. Based on the National Osteoporosis Foundation Guidelines, pharmacologic treatment should be initiated in any of the following, unless clinical conditions suggest otherwise: * Any patient with prior fragility fracture of the hip or vertebrae. A spine fracture indicates 5X risk for subsequent spine fracture and 2X risk for subsequent hip fracture. * Osteoporosis (T-score <-2.5). * Postmenopausal women and men age 50 and older with low bone mass/osteopenia (T-score between -1.0 and -2.5) by DXA and 10-year major osteoporotic fracture greater than 20% or a 10-year probability of hip fracture greater than 3%. These fracture risks are supplied above in the FRAX score, if applicable. * Clinician judgement and/or patient preferences may indicate treatment for people with 10-year fracture probabilities above or below these levels. Dictated by: Dictated on workstation # [id number]
== END ==
LOC: RAD 14:30
PROVIDERS: ATTEND Family Medicine
DX: Z13.820 Encounter for screening for osteoporosis (principal); M85.80 Other specified disorders of bone density and structure, unspecified site; M40.209 Unspecified kyphosis, site unspecified; Z78.0 Asymptomatic menopausal state
CPT/HCPCS: 77080

== ENCOUNTER → 2023-01-08 | Outpatient (CLI) | payer MEDICARE, OTHER ==
--- NOTE | 2023-01-08 16:56 | Diagnostic Imaging Report ---
INDICATION: Thoracolumbar pain. COMPARISON: Imaging from this same date and radiographs of the chest dated 03/24/2019. TECHNIQUE: Three radiographs of the thoracic spine dated 01/08/2023. FINDINGS: Mild S-shaped curvature of the visualized thoracolumbar spine. No significant anterolisthesis or retrolisthesis. Besides endplate degenerative changes, vertebral body heights are well-maintained and similar to the prior examination. Mild multilevel disc space height loss throughout the thoracic spine. No acute fracture or dislocation. Lateral osteophytes are present, particularly within the upper lumbar spine on the left. Evidence of calcified granuloma involving the mediastinum and lung bases. IMPRESSION: Mild S-shaped curvature of the thoracic spine without acute osseous abnormality with mild to moderate degenerative changes present. Evidence of chronic granulomatous disease. Dictated by: Dictated on workstation # [id number]
--- NOTE | 2023-01-08 16:57 | Diagnostic Imaging Report ---
INDICATION: Pain. COMPARISON: Imaging from this same date. TECHNIQUE: Three radiographs of the lumbar spine dated 01/08/2023. FINDINGS: Five lumbar type vertebral bodies are present. 6 mm of grade 1 anterolisthesis of L4 on L5. Besides scattered endplate degenerative changes, the vertebral body heights are well-maintained. Severe disc space height loss at L5/S1 with moderate disc space height loss within the remainder of the lumbar spine with moderate anterior osteophyte formation. Scattered facet joint degenerative changes, greatest within the lower lumbar spine. Lateral osteophytes are present, greatest within the upper lumbar spine on the left. The sacroiliac joints are intact. No acute fracture. Calcified granuloma noted within the lung bases/lower mediastinum. IMPRESSION: No acute osseous abnormality with apex left curvature of the visualized thoracolumbar spine, grade 1 anterolisthesis of L4 on L5, and moderate to severe multilevel degenerative changes present. Dictated by: Dictated on workstation # [id number]
== END ==
LOC: RAD 13:50
PROVIDERS: ATTEND Family Medicine
DX: M47.816 Spondylosis without myelopathy or radiculopathy, lumbar region (principal); M43.16 Spondylolisthesis, lumbar region; M48.04 Spinal stenosis, thoracic region; D71 Functional disorders of polymorphonuclear neutrophils
CPT/HCPCS: 72072; 72100